=== PATIENT | male | born 1940 | race Caucasian/White ===

== ENCOUNTER 2019-01-13 11:24 | Outpatient (CLI) | payer MEDICARE, OTHER | END 2019-01-13 23:59 | disposition home or self-care (01) | LOC: CVU 11:24 | PROVIDERS: ATTEND Internal Medicine Cardiovascular Disease | DX: I08.3 Combined rheumatic disorders of mitral, aortic and tricuspid valves (principal); I48.91 Unspecified atrial fibrillation | CPT/HCPCS: C8929; Q9957 ==

== ENCOUNTER 2019-06-23 07:22 | Outpatient (CLI) | payer MEDICARE, OTHER | END 2019-06-23 23:59 | disposition home or self-care (01) | LOC: RAD 07:22 | PROVIDERS: ATTEND Nurse Practitioner Family | DX: K44.9 Diaphragmatic hernia without obstruction or gangrene (principal); K21.0 Gastro-esophageal reflux disease with esophagitis; K22.8 Other specified diseases of esophagus | CPT/HCPCS: 74247 ==

== ENCOUNTER 2020-05-17 15:15 | Emergency (ER) | payer MEDICARE, OTHER ==
[~2020-05-17] VITALS: Ht 190.5 cm; Wt 129.5 kg
--- NOTE | 2020-05-17 15:44 | NUR ---
BOOK REVIEWER: PT AMBULATORY WITH STEADY GAIT TO ROOM AT THIS TIME. ANGELA
--- NOTE | 2020-05-17 17:00 | NUR ---
PT UP TO RESTROOM WITH STRONG, INDEPENDENT GAIT. URINE SAMPLE COLLECTED AND SENT. LAB AND ERP AT BEDSIDE. CALL LIGHT IN REACH.
[2020-05-17 17:03] LABS: BASOPHILS # (AUTO) 0.03 x10^3/uL (0-0.1); BASOPHILS % (AUTO) 0 % (0-1); EOSINOPHILS # (AUTO) 0.39 x10^3/uL (0-0.4); EOSINOPHILS % (AUTO) 5 % (1-7); LYMPHOCYTES # (AUTO) 3.24 x10^3/uL (1-3.4); LYMPHOCYTES % (AUTO) 40 % (22-44); MD NO; MEAN CORPUSCULAR HGB CONC 32.8 g/dL (33.2-36.2); MEAN PLATELET VOLUME 9.1 fL (7.4-10.4); MONOCYTES # (AUTO) 0.67 x10^3/uL (0.2-0.8); MONOCYTES % (AUTO) 8 % (2-9); NEUTROPHILS # (AUTO) 3.84 x10^3/uL (1.8-6.8); NEUTROPHILS % (AUTO) 47 % (42-75); PLATELET COUNT 176 x10^3/uL (130-400); RED BLOOD COUNT 5.22 x10^6/uL (4.38-5.82); RED CELL DISTRIBUTION WIDTH 15.1 % (9.4-14.8)
[2020-05-17 17:11] LABS: ALANINE AMINOTRANSFERASE 38 U/L (12-78); ALBUMIN 3.5 g/dL (3.4-5.0); ANION GAP 5 mmol/L (5-15); CALCIUM 9.8 mg/dL (8.5-10.1); CHLORIDE 106 mmol/L (98-107); CREATININE 0.85 mg/dL (0.7-1.3)
[2020-05-17 17:15] LABS: ALKALINE PHOSPHATASE 74 U/L (45-117); BILIRUBIN,TOTAL 0.7 mg/dL (0.2-1.0); TOTAL PROTEIN 7.4 g/dL (6.4-8.2); TROPONIN I < 0.015 ng/mL (0.000-0.045)
[2020-05-17 17:20] LABS: MICROSCOPIC INDICATED
--- NOTE | 2020-05-17 17:56 | NUR ---
PT TO IMAGING AT THIS TIME.
[2020-05-17 19:16] VITALS: BP 157/76
--- NOTE | 2020-05-17 19:17 | NUR ---
BREAK RN: PT SITTING AT EDGE OF BED IN POSITION OF COMFORT, WATCHING TV, DENIES PAIN. AT BEDSIDE. PT AND UPDATED ON POC.
[2020-05-17 19:36] LABS: INTERNATIONAL NORMALIZED RATIO 2.38 (0.93-1.1); PROTHROMBIN TIME 25.4 Seconds (9.6-11.5)
--- NOTE | 2020-05-17 19:58 | NUR ---
PT AMBULATORY TO BATHROOM, STEADY GAIT.
[2020-05-17] MEDS ORDERED: OMNIPAQUE 350 MG/ML, 100ML BOTTLE ONE (20:25)
--- NOTE | 2020-05-17 20:26 | NUR ---
PT RETURNED FROM CT AT THIS TIME.
== END 2020-05-17 21:24 | disposition home or self-care (01) ==
LOC: ED 19:26
DX: K59.00 Constipation, unspecified (principal); R10.84 Generalized abdominal pain; R10.13 Epigastric pain; M25.512 Pain in left shoulder; R07.89 Other chest pain; I48.91 Unspecified atrial fibrillation; I10 Essential (primary) hypertension; E11.9 Type 2 diabetes mellitus without complications; E78.5 Hyperlipidemia, unspecified
CPT/HCPCS: 36415; 71045; 74021; 74177; 80053; 81001; 83690; 84484; 85025; 85610; 85730; 87086; 93005; 99285; Q9967